=== PATIENT | female | born 1930 | race Caucasian/White ===

== ENCOUNTER 2019-02-22 12:47 | Inpatient (IN) | payer MEDICARE, OTHER ==
[~2019-02-22] VITALS: Ht 157.5 cm; Wt 93.0 kg
--- NOTE | 2019-02-22 13:06 | NUR ---
radiology at bedside.
--- NOTE | 2019-02-22 13:20 | NUR ---
dr. logan at bedside.
[2019-02-22] MEDS ORDERED: magnesium 2GM in 50ml NS 50 ML IV ONE (13:30)
[2019-02-22 13:31] LABS: BASOPHILS % (AUTO) 0.4 % (0-1); EOSINOPHILS # (AUTO) 0.1 X10'3 (0-0.9); EOSINOPHILS % (AUTO) 1.4 % (0-6); HEMATOCRIT 46.3 % (35.0-45.0); HEMOGLOBIN 15.9 g/dl (12.0-16.0); LYMPHOCYTES # (AUTO) 2.9 X10'3 (1.1-4.8); LYMPHOCYTES % (AUTO) 37.6 % (21-51); MEAN CORPUSCULAR HEMOGLOBIN 30.8 PG (27.0-31.0); MEAN CORPUSCULAR HGB CONC 34.3 g/dL (33.0-36.5); MEAN CORPUSCULAR VOLUME 89.9 FL (78-98); MEAN PLATELET VOLUME 7.8 FL (7.4-10.4); MONOCYTES # (AUTO) 0.6 X10'3 (0-0.9); MONOCYTES % (AUTO) 7.3 % (2-12); NEUTROPHILS # (AUTO) 4.2 X10'3 (1.8-7.7); NEUTROPHILS % (AUTO) 53.3 % (42-75); PLATELET COUNT 326 X10'3 (140-440); RED BLOOD COUNT 5.15 X10'6 (4.20-5.60); RED CELL DISTRIBUTION WIDTH 15.2 % (11.5-14.5); WHITE BLOOD COUNT 7.8 X10'3 (4.5-11.0)
[2019-02-22 13:46] LABS: ALANINE AMINOTRANSFERASE 20 U/L (12-78); ALBUMIN 3.7 G/DL (3.4-5.0); ALBUMIN/GLOBULIN RATIO 0.9 (1.1-1.5); ALKALINE PHOSPHATASE 84 IU/L (46-116); ANION GAP 12 (8-16); ASPARTATE AMINO TRANSFERASE 18 U/L (10-37); BILIRUBIN,TOTAL 0.5 MG/DL (0.1-1.0); BLOOD UREA NITROGEN 21 MG/DL (7-18); BUN/CREATININE RATIO 26.9 (6.6-38.0); CALCIUM 10.4 MG/DL (8.5-10.1); CHLORIDE 105 MMOL/L (99-107); CREATININE 0.78 MG/DL (0.40-0.90); GLUCOSE 117 MG/DL (70-104); SODIUM 140 MMOL/L (135-145); TOTAL CARBON DIOXIDE 23.5 MMOL/L (24-32); TOTAL PROTEIN 7.6 G/DL (6.4-8.2); eGFR 70 ML/MIN
[2019-02-22 13:47] LABS: PARTIAL THROMBOPLASTIN TIME 25 SECONDS (22-32); POTASSIUM 4.3 MMOL/L (3.5-5.1)
[2019-02-22] MEDS: metoprolol tartrate 1mg/ml inj IV SCH ×5 (13:56→15:21)
[2019-02-22 15:10] LABS: MAGNESIUM 2.4 MG/DL (1.5-2.4)
--- NOTE | 2019-02-22 15:18 | NUR ---
Dr. Kong made aware that patient's heart rate ranges from 70's-140's,denies chest pain.Md ordered to still administer lopressor 5mg iv and NS 100ml/hour.Order noted and carried out.
[2019-02-22] MEDS ORDERED: normal saline 1000ml 1,000 ML IV SCH (15:30)
[2019-02-22] MEDS ORDERED: BETA1TAB19 PO (15:46)
[2019-02-22] MEDS ORDERED: LEVO150T PO (15:46)
[2019-02-22] MEDS ORDERED: AMLO5TAB PO (15:46)
[2019-02-22] MEDS ORDERED: MELA3TAB PO (15:46)
[2019-02-22] MEDS ORDERED: FLO0.4C PO (15:46)
[2019-02-22] MEDS ORDERED: CALC1TAB PO (15:46)
[2019-02-22] MEDS ORDERED: normal saline 1000ml 1,000 ML IV ONE (16:16)
[2019-02-22] MEDS ORDERED: normal saline 1000ML IV soln IVB ONE ×2 (16:20→16:45)
[2019-02-22] MEDS ORDERED: HYDROcodone/acetaminophen 10/325mg tab PO PRN (16:40)
[2019-02-22] MEDS ORDERED: mag hydrox/Alum hydrox/simeth 30ml oral suspension PO PRN (16:40)
[2019-02-22] MEDS ORDERED: HYDROcodone/acetaminophen 5mg/325mg tablet PO PRN (16:40)
[2019-02-22] MEDS ORDERED: morphine 2 MG/ML inj. syringe IV PRN ×2 (16:40)
[2019-02-22] MEDS ORDERED: ondansetron/PF 4mg/2ml inj IV PRN (16:40)
[2019-02-22] MEDS ORDERED: diltiazem 5mg/ml 5ml inj. IV STA (18:06)
[2019-02-22] MEDS ORDERED: diltiazem CD 180mg cap (once-daily) PO STA (18:06)
--- NOTE | 2019-02-22 18:07 | NUR ---
Dr. Doll at bedside,made aware no change from lopressor 5mg iv x2,patient remained asymptomatic,ordered cardizem 10mg iv x 1 and cardizem cd 180mg po x1.patient aware.
--- NOTE | 2019-02-22 18:09 | NUR ---
production technician at bedside.
[2019-02-22 18:41] LABS: CLARITY,URINE SLIGHTLY CLOUDY (Clear); COLOR,URINE YELLOW (Yellow); GLUCOSE, URINE NEGATIVE (Neg); KETONES,URINE NEGATIVE (Neg); LEUKOCYTE ESTERASE ,URINE NEGATIVE (Neg); NITRITES, URINE POSITIVE (Neg); OCCULT BLOOD,URINE NEGATIVE (Neg); PROTEIN,URINE NEGATIVE (Neg); UA COLLECTION TYPE CLN CATCH MIDSTREAM; UROBILINOGEN,URINE 0.2 E.U/dL (0.2-1.0)
[2019-02-22 18:49] LABS: BACTERIA,URINE 4+ /HPF (Neg); MUCUS STRANDS NONE SEEN /LPF (Neg); RBC,URINE NONE SEEN /HPF (0-2); SQUAMOUS EPITHELIAL CELL,UR FEW /LPF (FEW)
--- NOTE | 2019-02-22 19:03 | NUR ---
RECIEVING NURSE TASHA NOT ABLE TO TAKE REPORT. WILL CALL DOWN TO ER WHEN ABLE.
[2019-02-22 19:45] VITALS: BP 116/80
[2019-02-22] MEDS: calcium carbonate/vitamin D3 tablet PO SCH (20:18)
--- NOTE | 2019-02-22 20:30 | NUR ---
Contacted Meli YUSUF for tachy/chandni Afib, directed IV 10 mg Diltiazem push
[2019-02-22] MEDS ORDERED: diltiazem 5mg/ml 5ml inj. IV ONE (20:40)
[2019-02-22] MEDS ORDERED: metoprolol tartrate 1mg/ml inj IV ONE (21:50)
[2019-02-22 22:00] VITALS: BP 95/51
[2019-02-22] MEDS ORDERED: NORMAL SALINE IV ONE (22:00)
[2019-02-22] MEDS ORDERED: METOPROLOL TARTRATE IV ONE (22:00)
--- NOTE | 2019-02-22 22:00 | NUR ---
Contacted Compa YUSUF for HR 140s, directed to give 10 mg Metoprolol
[2019-02-22] MEDS: Melatonin 3mg tablet PO SCH (23:22)
[2019-02-23] VITALS (15 sets, daily range): BP systolic 82–130; BP diastolic 56–90
[2019-02-23 01:24] LABS: ALBUMIN 2.8 G/DL (3.4-5.0); ANION GAP 8 (8-16); BLOOD UREA NITROGEN 24 MG/DL (7-18); BUN/CREATININE RATIO 33.3 (6.6-38.0); CALCIUM 9.8 MG/DL (8.5-10.1); CHLORIDE 110 MMOL/L (99-107); CREATININE 0.72 MG/DL (0.40-0.90); GLUCOSE 116 MG/DL (70-104); POTASSIUM 3.8 MMOL/L (3.5-5.1); SODIUM 143 MMOL/L (135-145); TOTAL CARBON DIOXIDE 25.5 MMOL/L (24-32); eGFR 77 ML/MIN
[2019-02-23] MEDS ORDERED: digoxin 250mcg/ml 2ml ampule IV ONE ×2 (04:00→07:40)
[2019-02-23 05:28] LABS: BASOPHILS % (AUTO) 0.5 % (0-1); EOSINOPHILS # (AUTO) 0.3 X10'3 (0-0.9); EOSINOPHILS % (AUTO) 3.7 % (0-6); HEMATOCRIT 40.7 % (35.0-45.0); HEMOGLOBIN 13.6 g/dl (12.0-16.0); LYMPHOCYTES # (AUTO) 2.7 X10'3 (1.1-4.8); LYMPHOCYTES % (AUTO) 39.9 % (21-51); MEAN CORPUSCULAR HEMOGLOBIN 30.3 PG (27.0-31.0); MEAN CORPUSCULAR HGB CONC 33.4 g/dL (33.0-36.5); MEAN CORPUSCULAR VOLUME 90.7 FL (78-98); MEAN PLATELET VOLUME 8.1 FL (7.4-10.4); MONOCYTES # (AUTO) 0.6 X10'3 (0-0.9); MONOCYTES % (AUTO) 9.1 % (2-12); NEUTROPHILS # (AUTO) 3.1 X10'3 (1.8-7.7); NEUTROPHILS % (AUTO) 46.8 % (42-75); PLATELET COUNT 266 X10'3 (140-440); RED BLOOD COUNT 4.49 X10'6 (4.20-5.60); RED CELL DISTRIBUTION WIDTH 15.3 % (11.5-14.5); WHITE BLOOD COUNT 6.7 X10'3 (4.5-11.0)
[2019-02-23] MEDS ORDERED: levoTHYROXINE 75mcg tablet PO SCH (07:00)
--- NOTE | 2019-02-23 07:33 | NUR ---
Paged Dr Doll to touch base on am report: PAGER ID: [phone] MESSAGE: Nina on ACCE at [phone] in room 313. Just wanted to touch base this morning. Her heart rate has continued to be all over the place all night, as low as 20s and as high as 140s. Currently afib 117, bp 95/56. What is our plan?
--- NOTE | 2019-02-23 07:42 | NUR ---
Critical troponin 2.1 PAGER ID: [phone] MESSAGE: Nina on ACCE at [phone] in 307. He has a critical troponin this morning of 2.1, this is up from 1.64. He is also in A Flutter with a current rate of 108. please advise
[2019-02-23] MEDS ORDERED: enoxaparin 40mg/0.4ml syringe SUBCUT SCH (08:00)
[2019-02-23] MEDS: calcium carbonate/vitamin D3 tablet PO SCH ×2 (08:03→21:55)
[2019-02-23] MEDS: beta-carotene(A) w/C & E + minerals tab PO SCH (08:03)
--- NOTE | 2019-02-23 08:10 | NUR ---
ASSISTED PATIENT UP TO BATHROOM WITH MOBILE MONITOR, PATIENT SUSTAINED HR IN THE 140S, ASYMPTOMATIC. WILL CONTINUE TO MONITOR.
--- NOTE | 2019-02-23 11:30 | NUR ---
DR. DE LA ROSA PRESENT TO CONSULT WITH PATIENT ABOUT PACEMAKER PLACEMENT, PATIENT AGREEABLE. WILL AWAIT MD TO LET US KNOW IF PATIENT WILL HAVE IT TODAY OR TOMORROW. NPO FOR NOW.
[2019-02-23] MEDS: normal saline 1000ml 1,000 ML IV SCH ×2 (13:42→22:22)
[2019-02-23] MEDS ORDERED: epiNEPHrine 1 mg/ml inj ONE (16:53)
[2019-02-23] MEDS ORDERED: ceFAZolin 1000mg inj ONE ×2 (16:54→19:42)
[2019-02-23] MEDS ORDERED: LIDOcaine 1% 30ml preserv. free vial ONE (16:54)
--- NOTE | 2019-02-23 18:10 | NUR ---
Patient in room MED 313. I have received report from Nina and had the opportunity to ask questions and assume patient care.
--- NOTE | 2019-02-23 18:15 | NUR ---
Patient in room MED 313. I have received report from Nina and had the opportunity to ask questions and assume patient care.
--- NOTE | 2019-02-23 18:20 | NUR ---
Problems reprioritized. Patient report given, questions answered & plan of care reviewed with Jefferson BALL.
[2019-02-23] MEDS ORDERED: ringers solution, lacted 1,000 ML IV SCH (18:59)
[2019-02-23] MEDS ORDERED: hydrALAZINE 20mg/ml inj. IV PRN (19:00)
[2019-02-23] MEDS ORDERED: morphine 4 MG/ML inj SYRINge IV PRN ×2 (19:00)
[2019-02-23] MEDS ORDERED: labetalol 20mg/4ml (5mg/ml) syringe IV PRN (19:00)
[2019-02-23] MEDS ORDERED: ondansetron/PF 4mg/2ml inj IV PRN (19:00)
[2019-02-23] MEDS ORDERED: fentaNYL/PF 50MCG/1 ML 2ML syringe IV PRN ×2 (19:00)
[2019-02-23] MEDS ORDERED: MIDAZolam 5mg/5ml vial ONE (19:29)
[2019-02-23] MEDS ORDERED: LIDOcaine 2% (20mg/ml) 5ml vial ONE (19:42)
[2019-02-23] MEDS ORDERED: propofol inj 20 ML IV ONE (19:42)
[2019-02-23] MEDS ORDERED: amiodarone 50MG/ML inj IV ONE (20:22)
--- NOTE | 2019-02-23 20:50 | NUR ---
Received from OR via , accompanied by Anesthesiologist DR OBANDO and report given by Anesthesiolgist. PT IS AWAKE, ALERT, ORIENTED, MOVES EXT X 4, SKIN WARM AND PINK, PIV LEFT AC WITH LR 100MLS/HR, PACER SITE LEFT UPPER CHEST COVERED WITH SMALL ISLAND DRESSING, CD, SCDS, NO C/O PAIN, VSS.
--- NOTE | 2019-02-23 21:24 | NUR ---
Report called to receiving nurse. Transferred via BED Belongings . Special Issues communicated to receiving nurse MADAN BALL. PT MEETS DISCHARGE CRITERIA, VSS, NO C/O PAIN, MOVES EXT X 4, PACER SITE CD, SCDS, DR DE LA ROSA NOTIFIED PER DR LLOYD AND NEW ORDERS OBTAINED. ORDERS PLACED. MADAN BALL STATED SHE WILL START AMIODARONE GTT ON [place] UNIT. PIV PATENT.
[2019-02-23] MEDS ORDERED: amiodarone 150mg/dext, iso-os 100 ML IV ONE (21:30)
--- NOTE | 2019-02-23 21:42 | NUR ---
Patient has arrived back to the floor post L PPM placement. VSS. left arm in sling and dressing is CDI. Awaiting pharmacy to release amiodarone per MD ordered post op. Patient denies pain.
[2019-02-23] MEDS: amiodarone/D5 360MG/200ML BAG 200 ML IV SCH (22:10)
[2019-02-23] MEDS: Melatonin 3mg tablet PO SCH (23:31)
[2019-02-24] VITALS (19 sets, daily range): BP systolic 103–154; BP diastolic 63–96
[2019-02-24] MEDS: amiodarone/D5 360MG/200ML BAG 200 ML IV SCH ×4 (02:57→20:41)
[2019-02-24 05:25] LABS: ALBUMIN 2.6 G/DL (3.4-5.0); ANION GAP 6 (8-16); BLOOD UREA NITROGEN 18 MG/DL (7-18); BUN/CREATININE RATIO 31.6 (6.6-38.0); CALCIUM 8.8 MG/DL (8.5-10.1); CHLORIDE 106 MMOL/L (99-107); CREATININE 0.57 MG/DL (0.40-0.90); GLUCOSE 123 MG/DL (70-104); POTASSIUM 3.8 MMOL/L (3.5-5.1); SODIUM 138 MMOL/L (135-145); TOTAL CARBON DIOXIDE 25.6 MMOL/L (24-32); eGFR > 90 ML/MIN
[2019-02-24 05:50] LABS: BASOPHILS % (AUTO) 0.2 % (0-1); EOSINOPHILS # (AUTO) 0.1 X10'3 (0-0.9); EOSINOPHILS % (AUTO) 1.6 % (0-6); HEMATOCRIT 39.2 % (35.0-45.0); HEMOGLOBIN 12.9 g/dl (12.0-16.0); LYMPHOCYTES # (AUTO) 1.9 X10'3 (1.1-4.8); LYMPHOCYTES % (AUTO) 24.6 % (21-51); MEAN CORPUSCULAR HEMOGLOBIN 30.2 PG (27.0-31.0); MEAN CORPUSCULAR VOLUME 91.6 FL (78-98); MONOCYTES # (AUTO) 0.6 X10'3 (0-0.9); MONOCYTES % (AUTO) 7.4 % (2-12); NEUTROPHILS # (AUTO) 5.2 X10'3 (1.8-7.7); NEUTROPHILS % (AUTO) 66.2 % (42-75); PLATELET COUNT 236 X10'3 (140-440); RED BLOOD COUNT 4.28 X10'6 (4.20-5.60); RED CELL DISTRIBUTION WIDTH 15.2 % (11.5-14.5); WHITE BLOOD COUNT 7.8 X10'3 (4.5-11.0)
--- NOTE | 2019-02-24 07:08 | NUR ---
Patient in room PCU 3020. I have received report from LIZZY Belcher and had the opportunity to ask questions and assume patient care.
[2019-02-24] MEDS: calcium carbonate/vitamin D3 tablet PO SCH ×2 (07:45→20:39)
[2019-02-24] MEDS: enoxaparin 60mg/0.6ml syringe SUBCUT SCH ×2 (07:46→20:40)
[2019-02-24] MEDS: levoTHYROXINE 175mcg tablet PO SCH (07:46)
[2019-02-24] MEDS: beta-carotene(A) w/C & E + minerals tab PO SCH (07:46)
[2019-02-24] MEDS: acetaminophen 325mg tablet PO PRN (07:47)
[2019-02-24] MEDS ORDERED: oxybutynin 5mg tablet PO SCH (11:12)
--- NOTE | 2019-02-24 11:12 | NUR ---
Dr. Duran in to see pt. Per Dr. Duran increase amio gtt to 1mg and add amiodorone 200po bid start now, add oxybutin 5mg bid. orders given to pharmacist by Dr. Duran
[2019-02-24] MEDS: normal saline 1000ml 1,000 ML IV SCH (11:25)
[2019-02-24] MEDS: amiodarone 200mg tablet PO SCH ×2 (11:25→20:39)
[2019-02-24] MEDS: oxybutynin 5mg tablet PO SCH ×2 (13:08→20:39)
--- NOTE | 2019-02-24 18:13 | NUR ---
Problems reprioritized. Patient report given, questions answered & plan of care reviewed with LIZZY HEADLEY.
[2019-02-24] MEDS: Melatonin 3mg tablet PO SCH (20:39)
[2019-02-25] MEDS: amiodarone/D5 360MG/200ML BAG 200 ML IV SCH ×2 (01:10→02:52)
[2019-02-25 02:00] VITALS: BP 142/74
[2019-02-25 05:36] LABS: BASOPHILS % (AUTO) 0.2 % (0-1); EOSINOPHILS # (AUTO) 0.1 X10'3 (0-0.9); HEMATOCRIT 38.2 % (35.0-45.0); HEMOGLOBIN 12.9 g/dl (12.0-16.0); LYMPHOCYTES # (AUTO) 1.7 X10'3 (1.1-4.8); LYMPHOCYTES % (AUTO) 24.4 % (21-51); MEAN CORPUSCULAR HEMOGLOBIN 30.6 PG (27.0-31.0); MEAN CORPUSCULAR HGB CONC 33.8 g/dL (33.0-36.5); MEAN CORPUSCULAR VOLUME 90.6 FL (78-98); MEAN PLATELET VOLUME 7.7 FL (7.4-10.4); MONOCYTES # (AUTO) 0.5 X10'3 (0-0.9); MONOCYTES % (AUTO) 6.8 % (2-12); NEUTROPHILS # (AUTO) 4.6 X10'3 (1.8-7.7); NEUTROPHILS % (AUTO) 67.6 % (42-75); PLATELET COUNT 224 X10'3 (140-440); RED BLOOD COUNT 4.22 X10'6 (4.20-5.60); RED CELL DISTRIBUTION WIDTH 14.8 % (11.5-14.5); WHITE BLOOD COUNT 6.9 X10'3 (4.5-11.0)
[2019-02-25 05:51] LABS: ALBUMIN 2.7 G/DL (3.4-5.0); ANION GAP 7 (8-16); BLOOD UREA NITROGEN 9 MG/DL (7-18); BUN/CREATININE RATIO 16.4 (6.6-38.0); CALCIUM 9.1 MG/DL (8.5-10.1); CHLORIDE 106 MMOL/L (99-107); CREATININE 0.55 MG/DL (0.40-0.90); GLUCOSE 134 MG/DL (70-104); POTASSIUM 3.6 MMOL/L (3.5-5.1); SODIUM 137 MMOL/L (135-145); TOTAL CARBON DIOXIDE 24.2 MMOL/L (24-32); eGFR > 90 ML/MIN
[2019-02-25 06:00] VITALS: BP 118/72
--- NOTE | 2019-02-25 06:30 | NUR ---
Patient in room PCU 3020. I have received report from Marisol BALL and had the opportunity to ask questions and assume patient care. Patient awake in bed. In no acute distress. Will continue to monitor.
[2019-02-25] MEDS: levoTHYROXINE 175mcg tablet PO SCH (07:57)
[2019-02-25] MEDS: amiodarone 200mg tablet PO SCH ×2 (07:57→21:02)
[2019-02-25] MEDS: beta-carotene(A) w/C & E + minerals tab PO SCH (07:58)
[2019-02-25] MEDS: oxybutynin 5mg tablet PO SCH ×3 (07:58→21:02)
[2019-02-25] MEDS: calcium carbonate/vitamin D3 tablet PO SCH ×2 (07:58→21:01)
[2019-02-25] MEDS: enoxaparin 60mg/0.6ml syringe SUBCUT SCH ×2 (08:00→21:01)
[2019-02-25] MEDS: normal saline 1000ml 1,000 ML IV SCH (08:02)
[2019-02-25] MEDS: magnesium hydroxide 30ml (MOM) UD suspension PO PRN ×2 (08:14→21:08)
[2019-02-25] MEDS ORDERED: amiodarone/D5 360MG/200ML BAG 200 ML IV SCH (08:18)
[2019-02-25] MEDS ORDERED: diltiazem CD 120mg capsule (once-daily) PO ONE (08:30)
[2019-02-25 11:00] VITALS: BP 127/78
[2019-02-25 15:00] VITALS: BP 113/73
[2019-02-25 19:00] VITALS: BP 128/81
--- NOTE | 2019-02-25 19:02 | NUR ---
[place] documentation: I have reviewed and agree with all interventions, assessments performed and documented by Luís RN. [place] Medication Administration: For this medication-pass time frame, all medication were reviewed, dispensed, administered and documented per hospital policy by Luís RN.
[2019-02-25 23:00] VITALS: BP 147/69
[2019-02-25] MEDS: amiodarone/D5 360MG/200ML BAG 200 ML IV PRN (23:13)
[2019-02-25] MEDS: Melatonin 3mg tablet PO SCH (23:14)
[2019-02-26] VITALS (15 sets, daily range): BP systolic 100–136; BP diastolic 65–88
[2019-02-26] MEDS: amiodarone/D5 360MG/200ML BAG 200 ML IV PRN ×4 (05:01→22:49)
[2019-02-26] MEDS: acetaminophen 325mg tablet PO PRN (05:02)
[2019-02-26 05:58] LABS: EOSINOPHILS # (AUTO) 0.1 X10'3 (0-0.9); HEMATOCRIT 37.9 % (35.0-45.0)
[2019-02-26 06:01] LABS: BASOPHILS % (AUTO) 0.4 % (0-1); EOSINOPHILS % (AUTO) 2.1 % (0-6); LYMPHOCYTES # (AUTO) 1.9 X10'3 (1.1-4.8); LYMPHOCYTES % (AUTO) 31.2 % (21-51); MEAN CORPUSCULAR HEMOGLOBIN 31.1 PG (27.0-31.0); MEAN CORPUSCULAR HGB CONC 34.2 g/dL (33.0-36.5); MEAN CORPUSCULAR VOLUME 90.8 FL (78-98); MEAN PLATELET VOLUME 7.9 FL (7.4-10.4); MONOCYTES # (AUTO) 0.6 X10'3 (0-0.9); MONOCYTES % (AUTO) 9.5 % (2-12); NEUTROPHILS # (AUTO) 3.5 X10'3 (1.8-7.7); NEUTROPHILS % (AUTO) 56.8 % (42-75); PLATELET COUNT 211 X10'3 (140-440); RED BLOOD COUNT 4.18 X10'6 (4.20-5.60); RED CELL DISTRIBUTION WIDTH 15.1 % (11.5-14.5); WHITE BLOOD COUNT 6.2 X10'3 (4.5-11.0)
[2019-02-26 06:16] LABS: ALBUMIN 2.7 G/DL (3.4-5.0); ANION GAP 7 (8-16); BLOOD UREA NITROGEN 11 MG/DL (7-18); BUN/CREATININE RATIO 18.6 (6.6-38.0); CALCIUM 9.6 MG/DL (8.5-10.1); CHLORIDE 105 MMOL/L (99-107); CREATININE 0.59 MG/DL (0.40-0.90); GLUCOSE 122 MG/DL (70-104); POTASSIUM 3.8 MMOL/L (3.5-5.1); SODIUM 139 MMOL/L (135-145); TOTAL CARBON DIOXIDE 27.5 MMOL/L (24-32); eGFR > 90 ML/MIN
--- NOTE | 2019-02-26 06:32 | NUR ---
Problems reprioritized. Patient report given, questions answered & plan of care reviewed with Natalie BALL.
[2019-02-26] MEDS: amiodarone 200mg tablet PO SCH ×2 (07:54→20:11)
[2019-02-26] MEDS: beta-carotene(A) w/C & E + minerals tab PO SCH (07:54)
[2019-02-26] MEDS: calcium carbonate/vitamin D3 tablet PO SCH ×2 (07:54→20:12)
[2019-02-26] MEDS: enoxaparin 60mg/0.6ml syringe SUBCUT SCH ×2 (07:55→20:16)
[2019-02-26] MEDS: levoTHYROXINE 175mcg tablet PO SCH (07:55)
[2019-02-26] MEDS: oxybutynin 5mg tablet PO SCH ×3 (07:55→20:11)
[2019-02-26] MEDS: metoprolol tartrate 25mg tablet PO SCH ×2 (07:55→20:11)
[2019-02-26] MEDS ORDERED: metoprolol tartrate 25mg tablet PO SCH (08:00)
[2019-02-26] MEDS: magnesium hydroxide 30ml (MOM) UD suspension PO PRN (08:02)
[2019-02-26] MEDS ORDERED: polyethylene glycol 3350 17gm powd pack PO ONE (10:05)
--- NOTE | 2019-02-26 10:05 | NUR ---
New order per Dr. Doll: Miralex packet for constipation. Once.
--- NOTE | 2019-02-26 18:30 | NUR ---
Problems reprioritized. Patient report given, questions answered & plan of care reviewed with Fern BALL.
[2019-02-26] MEDS: Melatonin 3mg tablet PO SCH (22:52)
[2019-02-27] VITALS (8 sets, daily range): BP systolic 91–140; BP diastolic 64–90
[2019-02-27] MEDS: amiodarone/D5 360MG/200ML BAG 200 ML IV PRN (04:00)
[2019-02-27 05:59] LABS: BASOPHILS # (AUTO) 0.1 X10'3 (0-0.2); BASOPHILS % (AUTO) 0.8 % (0-1); EOSINOPHILS # (AUTO) 0.2 X10'3 (0-0.9); EOSINOPHILS % (AUTO) 2.5 % (0-6); HEMATOCRIT 39.9 % (35.0-45.0); HEMOGLOBIN 13.2 g/dl (12.0-16.0); LYMPHOCYTES # (AUTO) 1.7 X10'3 (1.1-4.8); MEAN CORPUSCULAR HEMOGLOBIN 30.3 PG (27.0-31.0); MEAN CORPUSCULAR HGB CONC 33.2 g/dL (33.0-36.5); MEAN CORPUSCULAR VOLUME 91.3 FL (78-98); MEAN PLATELET VOLUME 8.2 FL (7.4-10.4); MONOCYTES # (AUTO) 0.6 X10'3 (0-0.9); MONOCYTES % (AUTO) 7.3 % (2-12); NEUTROPHILS % (AUTO) 66.4 % (42-75); PLATELET COUNT 207 X10'3 (140-440); RED BLOOD COUNT 4.37 X10'6 (4.20-5.60); RED CELL DISTRIBUTION WIDTH 15.2 % (11.5-14.5); WHITE BLOOD COUNT 7.6 X10'3 (4.5-11.0)
[2019-02-27 06:10] LABS: ALBUMIN 2.7 G/DL (3.4-5.0); ANION GAP 4 (8-16); BLOOD UREA NITROGEN 10 MG/DL (7-18); BUN/CREATININE RATIO 16.9 (6.6-38.0); CALCIUM 9.6 MG/DL (8.5-10.1); CHLORIDE 104 MMOL/L (99-107); CREATININE 0.59 MG/DL (0.40-0.90); GLUCOSE 123 MG/DL (70-104); POTASSIUM 4.1 MMOL/L (3.5-5.1); SODIUM 139 MMOL/L (135-145); TOTAL CARBON DIOXIDE 30.7 MMOL/L (24-32); eGFR > 90 ML/MIN
--- NOTE | 2019-02-27 06:29 | NUR ---
Problems reprioritized. Patient report given, questions answered & plan of care reviewed with Natalie BALL.
[2019-02-27] MEDS: beta-carotene(A) w/C & E + minerals tab PO SCH (08:01)
[2019-02-27] MEDS: metoprolol tartrate 25mg tablet PO SCH ×2 (08:01→20:05)
[2019-02-27] MEDS: enoxaparin 60mg/0.6ml syringe SUBCUT SCH ×2 (08:01→20:06)
[2019-02-27] MEDS: levoTHYROXINE 175mcg tablet PO SCH (08:01)
[2019-02-27] MEDS: calcium carbonate/vitamin D3 tablet PO SCH ×2 (08:01→20:04)
[2019-02-27] MEDS: oxybutynin 5mg tablet PO SCH ×3 (08:02→21:37)
[2019-02-27] MEDS: amiodarone 200mg tablet PO SCH ×2 (08:02→20:04)
--- NOTE | 2019-02-27 09:41 | NUR ---
Initial: Pt admit with Stephani with RVR now s/p permanent pacemaker placement. Pt with cardiomyopathy with EF 40-45% per MD notes. Pt currently on a heart healthy diet with documented 75-100% likely meeting nutrient needs. LBM 02/23. Pt receiving MoM PRN last given 02/26. Will continue to follow and monitor need for additional bowel care. Recommendations: 1) Continue with heart healthy diet 2) Monitor need for additional bowel care 3) Wt per rx Addendum: 02/27/19 at [address] Amended: Links added.
--- NOTE | 2019-02-27 09:55 | NUR ---
New orders per Dr. Duran: Lasix PO 40 mg daily, Potassium PO 20 mEq daily. Start today.
[2019-02-27] MEDS: potassium Cl 20 mEq SR tablet PO SCH (12:07)
[2019-02-27] MEDS: furosemide 40mg tablet PO SCH (12:07)
[2019-02-27] MEDS: amox tr/potassium clavulanate 500mg/125mg TAB PO SCH (17:26)
[2019-02-27] MEDS: Melatonin 3mg tablet PO SCH (23:03)
--- NOTE | 2019-02-28 | NUR ---
Patient in room PCU 3020. I have received report from JAVY BALL and had the opportunity to ask questions and assume patient care.
--- NOTE | 2019-02-28 00:10 | NUR ---
Problems reprioritized. Patient report given, questions answered & plan of care reviewed with Kami BALL.
[2019-02-28 03:12] VITALS: BP 112/84
[2019-02-28 06:00] VITALS: BP 129/78
--- NOTE | 2019-02-28 06:30 | NUR ---
Assumed patient care JACOB Barnett RN
[2019-02-28] MEDS: levoTHYROXINE 175mcg tablet PO SCH (07:07)
[2019-02-28 08:16] VITALS: BP_SYST 129
[2019-02-28] MEDS: calcium carbonate/vitamin D3 tablet PO SCH (08:16)
[2019-02-28] MEDS: metoprolol tartrate 25mg tablet PO SCH (08:16)
[2019-02-28] MEDS: potassium Cl 20 mEq SR tablet PO SCH (08:16)
[2019-02-28] MEDS: beta-carotene(A) w/C & E + minerals tab PO SCH (08:16)
[2019-02-28] MEDS: furosemide 40mg tablet PO SCH (08:16)
[2019-02-28] MEDS: amiodarone 200mg tablet PO SCH (08:17)
[2019-02-28] MEDS: enoxaparin 60mg/0.6ml syringe SUBCUT SCH (08:17)
[2019-02-28] MEDS: amox tr/potassium clavulanate 500mg/125mg TAB PO SCH (08:17)
[2019-02-28] MEDS: oxybutynin 5mg tablet PO SCH (08:18)
[2019-02-28] MEDS ORDERED: AMIO200T40 PO (09:28)
[2019-02-28] MEDS ORDERED: AMOX1TAB15 PO (09:28)
[2019-02-28] MEDS ORDERED: OXYB5TAB11 PO (09:28)
[2019-02-28] MEDS ORDERED: APIX5TAB3 PO (09:54)
--- NOTE | 2019-02-28 12:10 | NUR ---
D/C patient home with daughter .All instruction given all question answered med delivered by Gisele DEAL D/C put in the car by parth Barnett RN
== END 2019-02-28 12:25 | disposition home or self-care (01) | DRG 242 ==
LOC: ER 12:48 → MED 3N 19:24 → CMPBEDREQ 02-24 00:22 → PCU 3S 02-24 06:50
PROVIDERS: ADMIT Internal Medicine; ATTEND Internal Medicine
PROC: 02H63JZ Insertion of Pacemaker Lead into Right Atrium, Percutaneous Approach (ICD-10-PCS; 2019-02-23)
PROC: 02HK3JZ Insertion of Pacemaker Lead into Right Ventricle, Percutaneous Approach (ICD-10-PCS; 2019-02-23)
PROC: 0JH606Z Insertion of Pacemaker, Dual Chamber into Chest Subcutaneous Tissue and Fascia, Open Approach (ICD-10-PCS; principal; 2019-02-23 19:28)
DX: I49.5 Sick sinus syndrome (principal); I50.21 Acute systolic (congestive) heart failure; I47.1 Supraventricular tachycardia; I48.92 Unspecified atrial flutter; I44.1 Atrioventricular block, second degree; I48.91 Unspecified atrial fibrillation; E83.52 Hypercalcemia; E03.9 Hypothyroidism, unspecified; I11.0 Hypertensive heart disease with heart failure; R09.82 Postnasal drip; E66.9 Obesity, unspecified; I34.0 Nonrheumatic mitral (valve) insufficiency; G47.00 Insomnia, unspecified; R32 Unspecified urinary incontinence; I42.9 Cardiomyopathy, unspecified; J40 Bronchitis, not specified as acute or chronic; Z90.710 Acquired absence of both cervix and uterus; Z90.49 Acquired absence of other specified parts of digestive tract; Z79.899 Other long term (current) drug therapy; Z79.01 Long term (current) use of anticoagulants; Z79.890 Hormone replacement therapy; Z85.820 Personal history of malignant melanoma of skin; Z87.891 Personal history of nicotine dependence; Z68.37 Body mass index [BMI] 37.0-37.9, adult
CPT/HCPCS: 36415; 71045; 71048; 76000; 80048; 80053; 80162; 81001; 83735; 83880; 84443; 84484; 85025; 85610; 85730; 87070; 87077; 87088; 87186; 93005; 93306; 96365; 97110; 97116; 97530; 99285; A4565; A7000; C1785; G0378; J0171; J0282; J0690; J1160; J1650; J2001; J2250; J2704; J3475; J3490; J7030; J7120